=== PATIENT | female | born 1980 | race Asian ===

== ENCOUNTER 2017-12-16 14:08 | Emergency (ER) | payer OTHER ==
[~2017-12-16] VITALS: Ht 162.6 cm; Wt 58.1 kg
[2017-12-16] MEDS ORDERED: NKM (14:17)
[2017-12-16] MEDS ORDERED: IBUPROFEN600 MG ORAL (14:40)
[2017-12-16 14:43] VITALS: BP 112/80
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
== END 2017-12-16 15:00 | disposition home or self-care (01) ==
LOC: EMR 14:56
DX: S39.012A Strain of muscle, fascia and tendon of lower back, initial encounter (principal); M25.532 Pain in left wrist; W51.XXXA Accidental striking against or bumped into by another person, initial encounter; Y93.89 Activity, other specified; Y92.238 Other place in hospital as the place of occurrence of the external cause; Y99.0 Civilian activity done for income or pay
CPT/HCPCS: 99282